=== PATIENT | female | born 1950 | race Caucasian/White ===

== ENCOUNTER 2024-06-25 06:14 | Observation (INO) ==
--- NOTE | 2024-06-06 14:05 | PAT Medication Instructions ---
Medication Instructions Date of Service June 06, 2024 Home Medications cetirizine 10 mg tablet (Zyrtec) 10 mg PO QAM omeprazole 20 mg capsule,delayed release 20 mg PO QAM calcium 600 mg capsule 1,000 mg PO DAILY cholecalciferol (vitamin D3) 50 mcg (2,000 unit) tablet (Vitamin D3) 50 mcg PO Q2D DO NOT take the morning of surgery cetirizine 10 mg tablet (Zyrtec) 10 mg PO QAM calcium 600 mg capsule 1,000 mg PO DAILY cholecalciferol (vitamin D3) 50 mcg (2,000 unit) tablet (Vitamin D3) 50 mcg PO Q2D Take morning of surgery With a small sip of water, OTHERWISE NOTHING TO EAT OR DRINK AFTER MIDNIGHT: omeprazole 20 mg capsule,delayed release 20 mg PO QAM Other Notes If you have any questions please call us at [phone] or [phone] or [phone] or [phone]
--- NOTE | 2024-06-11 13:28 | Anesthesiology Consultation ---
Date of Service June 11, 2024 Assessment & Plan (1) Encounter for pre-operative examination: - Infectious disease screening: Per assessment on 06/11/24: No known recent infectious disease contacts or current infectious disease symptoms. - Outpatient joint assessment: Pt currently scheduled for inpatient pathway. If surgeon requests review for outpatient joint pathway, patient is an acceptable candidate for outpatient joint program from anesthesia standpoint pending surgeon's office assessment that patient is motivated, has good support and completes [facility] preop requirements. Chart Review Chart Review: Acceptable Risk for Surgery and Patient seen in Pre Admission Testing Teaching & Discussion Pre-Anesthesia Teaching/Discussion Notes: Instructed NPO after midnight before surgery,except medications with 15 cc of water. Medication instructions provided according to the PAT guidelines. History Surgery Operation Date: 06/25/24 08:50 Proposed Procedures p Right Total Knee Arthroplasty - Curtis Manriquez MD Height/Weight Height: 5 ft 4 in Weight: 104.4 kg Allergies Allergy/AdvReac Type Severity Reaction Status Date / Time No Known Allergies Allergy Verified 06/05/24 11:54 Medications Home Medications Medication Instructions Recorded Confirmed Last Taken cetirizine 10 mg tablet (Zyrtec) 10 mg PO QAM 11/24/23 06/05/24 12/04/23 omeprazole 20 mg capsule,delayed 20 mg PO QAM 11/24/23 06/05/24 12/04/23 release calcium 600 mg capsule 1,000 mg PO DAILY 06/05/24 06/05/24 Unknown cholecalciferol (vitamin D3) 50 50 mcg PO Q2D 06/05/24 06/05/24 Unknown mcg (2,000 unit) tablet (Vitamin D3) Past Medical History Medical History GERD (gastroesophageal reflux disease) Hiatal hernia History of colon polyps History of COVID-19 (09/2023) [place] (hard of hearing) B/L hearing aids Hyperlipidemia Diet/lifestyle changes Osteoarthritis Seasonal allergies + environmental Stage 3 chronic kidney disease Under surveillance Exercise / Class Metabolic Activity III < 4 Walking/Shop/Light housework (One FS: No CP, + SOB) Past Family History Family History Brother Family history of colon cancer Mother Family history of reaction to anesthesia n/v Past Surgical History Surgical History History of dilatation and curettage History of endoscopy History of laparotomy for tumor Hx of colonoscopy Hx of detached retina repair x2 right Hx of hernia repair w/mesh Hx of hysterectomy unilateral oophorectomy HX: benign breast biopsy Nausea and vomiting after administration of anesthetic agent Past Anesthesia History No Family Hx of Anesthesia Complications and Other (Post-op vertigo after hernia repair) History of PONV No Hx of Motion Sickness and History of PONV Social History Smoking Status: Never smoker Do You Dip or Chew Tobacco: No Hx Alcohol Use: No Hx Substance Use: No substance use type: does not use Review of Systems + snoring. No witnessed apneic events. No sleep study. Patient denies chest pain, shortness of breath, fever, chills, cough, wheezing, palpitations. Physical Exam Vital Signs BP 147/73 P 80 TEMP 98.1 SP02 95%RA RESP 18 Physical Full cervical extension range of motion. Full TMJ range of motion. TMD > 3.5 finger breaths Mallampati Score II Dentition: intact Lungs: clear throughout to auscultation Cardiac: regular rate and rhythm, no murmurs noted Spine: normal Carotid arteries: negative bruit Extremities: no LE edema Thick neck Lab Results Anesthesia Preop Results Results Anesthesia Widget: WBC 7.44 K/ul (4.8-10.8) 06/11/24 Hgb 13.4 g/dl (12.0-16.0) 06/11/24 Hct 41.6 % (37.0-47.0) 06/11/24 Plt 233 K/uL (130-400) 06/11/24 Na 141 mmol/L (136-145) 06/11/24 K 4.2 mmol/L (3.5-5.1) 06/11/24 Cl 107 mmol/L (98-107) 06/11/24 CO2 27 mmol/L (21-32) 06/11/24 BUN 16 mg/dl (6-23) 06/11/24 Creat 0.89 mg/dl (0.6-1.2) 06/11/24 Glucose Level 92 mg/dl (70-99(Fasting)) 06/11/24 PT 10.9 Seconds (9.0-12.0) 06/11/24 PTT 26 Seconds (21-31) 06/11/24 INR 1.0 (0.9-1.1) 06/11/24 Blood Type A Positive 06/11/24 Antibody Screen NEGATIVE 06/11/24 Testing Electrocardiogram Date: 06/11/24 NSR at 70bpm. Chest X-Ray Date: 06/11/24 FINDINGS: PA and lateral chest radiographs are obtained. No prior studies are available for comparison at the time of dictation. The cardiomediastinal silhouette is unremarkable. The lungs and pleural spaces are clear. There is no pneumothorax. The skeletal structures are osteopenic. The bony thorax appears intact. IMPRESSION: No active disease in the chest.
[2024-06-25] MEDS: CeleBREX 200 MG CAP PO SCH (06:43)
[2024-06-25] MEDS: METOCLOPRAMIDE HCL 10 MG TABLET PO SCH (06:43)
[2024-06-25] MEDS: LR 60ML/HR IV SCH (06:43)
[2024-06-25] MEDS: FAMOTIDINE 20 MG TAB PO SCH (06:43)
[2024-06-25] MEDS: ACETAMINOPHEN 500 MG TAB PO SCH ×2 (06:43→14:00)
--- NOTE | 2024-06-25 06:43 | History & Physical Bridge Note ---
Date of Service June 25, 2024 History & Physical Bridge Note I have examined the patient, reviewed the History & Physical and in the interval since the performance of the History & Physical I have noted the following changes of clinical significance: no changes noted
[2024-06-25] MEDS: LR 500ML BOLUS, THEN 15ML/HR IV SCH (06:50)
[2024-06-25] MEDS ORDERED: ROPIVACAINE 0.5% 5 MG/ML 30 ML VIAL ONE (06:58)
[2024-06-25] MEDS: dexAMETHasone**PF** 10 MG/ML VIAL IV SCH (06:58)
[2024-06-25] MEDS ORDERED: METOCLOPRAMIDE HCL INJ 5 MG/ML 2 ML VIAL ONE (07:33)
[2024-06-25] MEDS ORDERED: ONDANSETRON INJ 2 MG/ML 2 ML VIAL ONE (07:33)
[2024-06-25] MEDS ORDERED: PROPOFOL IV EMULSION 10 MG/ML 20 ML VIAL IV ONE ×3 (07:33→10:51)
[2024-06-25] MEDS ORDERED: MIDAZOLAM HCL 1 MG/ML 2ML VIAL ONE (07:34)
[2024-06-25] MEDS: ceFAZolin 2000MG 2,000 MG/15 ML SYR IV SCH ×2 (09:18→16:20)
[2024-06-25] MEDS: ORTHO JOINT ANESTHETIC ONE (09:56)
[2024-06-25] MEDS ORDERED: PHENYLEPHRINE 100MCG/ML 10ML SYR IV ONE (10:16)
[2024-06-25] MEDS: TRANEXAMIC ACID 1,000 MG **IV Intra-op IV SCH (10:17)
[2024-06-25] MEDS: ROPIV 0.5% 246mg, Ketorolac 30mg, EPINEPHrine 0.5mg in NSS INFIL SCH (10:32)
--- NOTE | 2024-06-25 11:22 | Operative Report ---
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 She had grade 4 changes in all 3 compartments most severely in the medial and patellofemoral compartments. Varus deformity to her knee. Osteophytes primarily medially. Moderate-sized joint effusion. Specimens Right knee sent for pathology. Anesthesia Type Spinal MAC Complications none Disposition Accompanied Patient To Recovery: No Indications Patient is a 74-year-old female whose had a several year history of increasing bilateral knee pain discomfort that is gradually gotten worse over time. She believes extensive conservative treatment with patches become less successful. X-rays show advanced bilateral knee arthritis. She elected proceed with right total knee arthroplasty. Description of Procedure Operative implants consist of: 1 Biomet Vanguard size 62.5 right posterior stabilized femoral component. 2. Biomet size 67 tibial tray. 3. 10 mm posterior stabilized polyethylene insert. 4. 28 x 8 all poly patella. The patient was taken the operating, identified, and placed on the operating tab le in the supine position. All contact areas were appropriately padded. IV antibiotics tried by anesthesia team. A spinal anesthetic and abductor canal block had been applied in the holding area. A Montelongo catheter was placed in sterile fashion. Right thigh tent was then placed. The right lower extremity was then prepped and draped in usual sterile fashion. The right leg was elevated and exsanguinated with use of an Esmarch and tourniquet placed at 300 mmHg. An anterior approach to the right knee was then performed to longitudinal incision centered over the patella. Sharp dissection was carried through subcutaneous tissue down the extensor mechanism. A medial parapatellar arthrotomy incision was made. Some subperiosteal dissection was carried out medially. The fat pad was resected from Neath patella tendon. Lateral patellofemoral ligament was released. Patella subluxated laterally and the knee was flexed. The osteophytes taken off the distal femur. The ACL and PCL were then released from the distal femur and the tibia subluxated anteriorly. The external tibial alignment jig was then placed on the anterior face of the tibia and adjusted 14 mm medially. Proximal tibial cut was made remove 2 mm of bone from the medial side. Some osteophytes taken off medial and posterior medially. The tibia was sized to a size 67. Attention drawn the femur. The distal femur examined the sharp drill. Intramedullary canal was suction. Right 5 degree valgus cutting guide was placed. The distal femoral cutting block was pinned in place. Distal femoral cut was made to take an additional 3 mm of bone off distal femur. The femur was then sized to a size 62.5. The AP cutting block was pinned parallel to the epicondylar axis which was 5 degrees of external rotation. The anterior cut, anterior chamfer, posterior cut, posterior chamfer cuts were made. The box cutting guide was placed in the just slight lateral and the box cut was made. The knee was flexed. The remnants of the medial and lateral menisci were excised. The osteophytes taken off the posterior aspect of femur. A trial femoral component was placed. The tibial tray was pinned in Edie external rotation and the drill and stem punch were used to create defect in proximal tibia for the tibial tray. The knee was then trialed and the 10 mm insert fit most appropriately. Attention drawn the patella. The patella was cleaned of all soft tissues. Patella thickness measured 23 mm in thickness. It was cut down to about 14. Was sized to a size 28 patella. The locals were drilled for the 28 patella. The lateral osteophytes removed. The patella button was placed. The knee was taken through range of motion and the patella tracked nicely with no thumbs test. Attention drawn to place the permanent components. All trial components were removed. Bone plug was placed into the distal femur limit blood loss. A double batch [place]os G cement was mixed. A Biomet Vanguard size 62.5 right posterior Byce femoral component, a size 67 tibial tray, 10 mm posterior Byce polyethylene insert, and a 28 x 8 all poly patella then cemented in place. The knee was brought out into full extension till cement hardened. Final cement check was then performed. The pericapsular tissues were injected with total of 100 cc of Ortho mix. The patient did receive 1 g tranexamic acid. The tourniquet was then let down for final tourniquet time of 55 minutes. Hemostasis assured use electrocautery. Extensor Meclomen closed with combination 1 PDS suture #1 Vicryl suture in a [id number] fashion. Exten sor Meclomen checked found to be intact and subcutaneous tissue then closed with 2 Dexon suture in a buried interrupted fashion skin was closed skin benja. Leg was then cleaned and dried and sterile dressing with Xeroform, 4 fours, sterile ABD pad, sterile cast padding, Brent bandage were applied. Patient then transferred to the recovery room in stable condition. Patient tolerated the procedure well and there were no complications. I attest to the content of the Intraoperative Record and any orders documented therein. Any exceptions are noted below.
--- NOTE | 2024-06-25 11:33 | Anesthesiology Progress Note ---
Date of Service June 25, 2024 Anesthesia Post Procedure Vital Signs Vital Signs: Temp Pulse Resp BP Pulse Ox O2 Del Method 06/25/24 06:38 36.6 C 77 20 145/96 H 96 Room Air Pain Intensity Right Knee: Pain Intensity: 2 Transfer of Care Handoff Completed per policy Notes Mental Status: alert / awake / arousable and participated in evaluation Patient Amnestic to Procedure: Yes Nausea / Vomiting: adequately controlled Pain: adequately controlled Airway Patency, RR, SpO2: stable & adequate BP & HR: stable & adequate Hydration State: stable & adequate Neuraxial Anesthesia: was administered and sensory block is resolving Anesthetic Complications: no major complications apparent and Pt Satisfied with anesthetic care
[2024-06-25] MEDS: MEPERIDINE HCL 25 MG/ML CARP/VIAL IV ONE (11:39)
--- NOTE | 2024-06-25 12:16 | XRay Report ---
XR knee RT 1 or 2V routine CLINICAL HISTORY: Surgical Post Op TECHNIQUE: 2 views of the right knee were obtained. Comparison: Comparison is made to knee radiographs 05/03/2024 FINDINGS: Patient is status post total knee arthroplasty with expected postsurgical changes including soft tiss ue swelling and subcutaneous emphysema. No periarticular lucency or hardware fracture is seen. IMPRESSION: Expected postoperative appearance status post placement of total knee arthroplasty. ACT 112: Negative or not required by law. Electronically signed by: Philippe Del Toro M.D. 06/25/2024 12:14 PM
[2024-06-25] MEDS ORDERED: ALUMINUM/MAGNESIUM SUSP 30 ML UDC PO PRN (12:23)
[2024-06-25] MEDS ORDERED: HYDROmorphone INJ 0.5 MG/0.5 ML SYR IV PRN (12:23)
[2024-06-25] MEDS ORDERED: ONDANSETRON INJ 2 MG/ML 2 ML VIAL IV PRN (12:23)
[2024-06-25] MEDS ORDERED: bisacodyL 10 MG SUPP PR PRN (12:23)
[2024-06-25] MEDS ORDERED: NALOXONE HCL 0.4 MG/1 ML VIAL/CARP IV PRN (12:23)
[2024-06-25] MEDS ORDERED: MAGNESIUM HYDROXIDE SUSP 30 ML UDC PO PRN (12:23)
[2024-06-25] MEDS ORDERED: METOCLOPRAMIDE HCL INJ 5 MG/ML 2 ML VIAL IV PRN (12:23)
[2024-06-25] MEDS: SODIUM CHLORIDE 0.9% 1,000 ML IV SCH (12:35)
[2024-06-25] MEDS: KETOROLAC TROMETHAMINE 15 MG/ML VIAL IV SCH (13:00)
[2024-06-25] MEDS: ASCORBIC ACID 500 MG TAB PO SCH (16:19)
[2024-06-25] MEDS: TRANEXAMIC ACID / 0.7% NACL 1,000 MG/100 ML BAG IV SCH (16:25)
[2024-06-25] MEDS ORDERED: SENNA 8.6 MG TAB PO SCH (21:00)
[2024-06-25] MEDS: DOCUSATE SODIUM 100 MG CAP PO SCH (21:17)
[2024-06-25] MEDS: SENNA 8.6 MG TAB PO SCH (21:17)
[2024-06-25] MEDS: ASPIRIN 81 MG ECTAB PO SCH (21:17)
[2024-06-26 06:39] LABS: Hematocrit (blood only) 34.6 % (37.0-47.0); Hemoglobin 11.6 g/dl (12.0-16.0); Mean Corpuscular Hemoglobin 29.4 pg (25.0-34.0); Mean Corpuscular Hgb Conc 33.5 g/dL (32.0-36.0); Mean Corpuscular Volume 87.8 fL (80.0-100.0); Mean Platelet Volume 11.2 fL (9.4-12.4); Platelet Count 215 K/uL (130-400); RDW Coefficient of Variation 13.2 % (11.5-14.5); RDW Standard Deviation 42.1 fL (36.4-46.3); Red Blood Count 3.94 M/uL (4.20-5.40); White Blood Count 9.34 K/ul (4.8-10.8)
[2024-06-26 07:06] LABS: Anion Gap 5 (3-11); BUN Creatinine Ratio 13.6 (10-20); Blood Urea Nitrogen 12 mg/dl (6-23); Calcium 8.7 mg/dl (8.6-10.3); Carbon Dioxide 27 mmol/L (21-32); Chloride 109 mmol/L (98-107); Creatinine Clr Calc Pharmacy 66.5 ml/min; Est GFR (African American) 75.5 ml/min; Est GFR (Non-African American) 65.2 ml/min; Glucose 105 mg/dl (70-99(Fasting)); Sodium 141 mmol/L (136-145)
[2024-06-26] MEDS: PANTOprazole 40 MG TAB PO SCH (07:13)
[2024-06-26] MEDS: oxyCODONE HCL IR 5 MG TAB (IMMEDIATE RELEASE) PO PRN (08:53)
[2024-06-26] MEDS: CALCIUM CARBONATE 1250MG TAB PO SCH (08:55)
[2024-06-26] MEDS: CETIRIZINE HCL 10 MG TABLET PO SCH (08:55)
[2024-06-26] MEDS: dexAMETHasone 10 MG in SYRINGE 0 ML IV SCH (08:55)
[2024-06-26] MEDS: CHOLECALCIFEROL 25 MCG (1000 UNITS) TAB PO SCH (08:56)
[2024-06-26] MEDS: MULTIVITAMIN TAB PO SCH (08:57)
--- NOTE | 2024-06-26 09:02 | Orthopedic Progress Note ---
Date of Service June 26, 2024 Assessment & Plan (1) Status post right knee replacement: Plan: 74-year-old female postop day 1 from right knee replacement. She is doing quite well. Pains been controlled. She is neurologically intact. Hoping to go home today. Plan: 1. DVT prophylaxis including thigh-high teds, SCDs, aspirin twice a day. 2. PT/OT. Weight-bear as tolerated. Right total knee protocol. 3. Pain control doing okay with current pain regimen. 4. Disposition. The plan is to discharge to home with some home health after therapy today. Admission and Anticipated Discharge Date Admission Date: June 25, 2024 Subjective 74-year-old female postop day 1 from right knee replacement. She is doing pretty well. Had a good night. Slept well. Pains been controlled. No chest pain or shortness of breath. Not feeling dizzy or lightheaded. Physical Exam Physical Exam: Physical examination is a pleasant middle-age female. As she is sitting up playing in her bedside chair and looks quite comfortable. Examination of the right leg reveals dressing clean dry and intact. She can dorsiflex and plantarflex her foot appropriately. She can do a straight leg raise. Respiratory: normal respiratory effort, lungs clear to auscultation Cardiovascular: RRR, no murmur, no edema Gastrointestinal (Abdomen): normal bowel sounds, soft, nontender, no hepatosplenomegaly Results & Data Vital Signs (Past 12 Hours) Vital Signs Temp Pulse Resp BP Pulse Ox O2 Del Method 06/26/24 07:08 36.5 C 69 16 130/80 95 Room Air 06/26/24 03:48 36.6 C 72 12 103/64 96 Room Air 06/25/24 23:06 36.7 C 77 14 104/66 96 Room Air Laboratory Results Hemoglobin is 11.6. Hematocrit is 34.6. Electrolytes are stable.
== END 2024-06-26 10:58 | disposition home health service (06) ==
LOC: ASU 06:14 → 3E 06:14